=== PATIENT | female | born 1980 ===

== ENCOUNTER 2018-05-30 23:42 | Emergency (ER) | payer SELFPAY ==
[2018-05-30 23:42] VITALS: BMI 25.0
--- NOTE | 2018-05-31 00:09 | ED PDOC ---
Arrival/HPI <Chris Wheeler - Last Filed: 05/31/18 00:55> - General Historian: Patient - History of Present Illness Narrative History of Present Illness (Text): 05/31/18 00:07 37 y/o female, no significant pmh, nkda, c/o nasal congestion/coughing/fever and bodyache x 2 days with no recent traveling. Nasal congestion, admits productive coughing, tmax unknown, no night sweat, no rash, no dizziness, admits fatigue and bodyache, no night sweat, no dizziness, no change in vision, no other medical or psychological complaints. <Riley Swanson - Last Filed: 05/31/18 01:26> - General Chief Complaint: Cough, Cold, Congestion Time Seen by Provider: 05/30/18 23:58 Past Medical History - Provider Review Nursing Documentation Reviewed: Yes - Past History Past History: No Previous - Infectious Disease Hx of Infectious Diseases: None - Tetanus Immunization Tetanus Immunization: Unknown - Past Medical History Past Medical History: No Previous - Psychiatric Hx Depression: No Hx Emotional Abuse: No Hx Physical Abuse: No Hx Substance Use: No - Past Surgical History Past Surgical History: No Previous - Anesthesia Hx Anesthesia: No - Suicidal Assessment Feels Threatened In Home Enviroment: No <Riley Swanson - Last Filed: 05/31/18 01:26> Family/Social History - Physician Review Nursing Documentation Reviewed: Yes Family/Social History: Unknown Family HX Smoking Status: Never Smoked Hx Alcohol Use: No Hx Substance Use: No Hx Substance Use Treatment: No <Riley Swanson - Last Filed: 05/31/18 01:26> Allergies/Home Meds <Chris Wheeler - Last Filed: 05/31/18 00:55> <Riley Swanson - Last Filed: 05/31/18 01:26> Allergies/Adverse Reactions: Allergies No Known Allergies Allergy (Verified 03/10/16 15:57) Review of Systems - Review of Systems Constitutional: Fatigue, Fevers Eyes: absent: Vision Changes ENT: Rhinorrhea. absent: Hearing Changes Respiratory: Cough, Sputum. absent: SOB, Wheezing Cardiovascular: absent: Chest Pain Gastrointestinal: absent: Abdominal Pain, Diarrhea, Nausea, Vomiting Skin: absent: Rash, Pruritis Neurological: absent: Headache, Dizziness Psychiatric: absent: Anxiety, Depression, Suicidal Ideation <Riley Swanson - Last Filed: 05/31/18 01:26> Physical Exam - Systems Exam Head: Present: Atraumatic, Normocephalic Pupils: Present: PERRL Extroacular Muscles: Present: EOMI Conjunctiva: Present: Normal Ears: Present: NORMAL TM, Normal Canal. No: Erythema Mouth: Present: Moist Mucous Membranes, Normal Lips, Normal Tounge. No: Trismus Pharnyx: No: ERYTHEMA, EXUDATE, TONSILS ENLARGED Nose (External): Present: Atraumatic. No: Abrasion, Contusion, Laceration Nose (Internal): Present: Normal Inspection, No Active Bleeding, Rhinorrhea. No : Septal Deviation, Septal Hematoma, Epistaxis Neck: Present: Normal Range of Motion, Trachea Midline. No: Meningeal Signs, MIDLINE TENDERNESS, Paraspinal Tenderness, Lymphadenopathy Respiratory/Chest: Present: Clear to Auscultation, Good Air Exchange. No: Respiratory Distress, Accessory Muscle Use Cardiovascular: Present: Regular Rate and Rhythm, Normal S1, S2. No: Murmurs Abdomen: No: Tenderness, Distention, Peritoneal Signs, Rebound, Guarding Back: Present: Normal Inspection Upper Extremity: Present: Normal Inspection. No: Cyanosis, Edema Lower Extremity: Present: Normal Inspection. No: Edema Neurological: Present: GCS=15, CN II-XII Intact, Speech Normal, Motor Func Grossly Intact, Gait Normal, Memory Normal Skin: Present: Warm, Dry, Normal Color. No: Rashes Psychiatric: Present: Alert, Oriented x 3, Normal Insight, Normal Concentration <Riley Swanson - Last Filed: 05/31/18 01:26> Medical Decision Making - Lab Interpretations Lab Results: Lab Results 05/31/18 00:15: Influenza Typ A,B (EIA) Negative for flu a/b - Medication Orders Current Medication Orders: Discontinued Medications Acetaminophen (Tylenol 325mg Tab) 650 mg PO STAT STA Stop: 05/31/18 00:07 Azithromycin (Zithromax) 500 mg PO STAT STA; Protocol Stop: 05/31/18 00:07 <Chris Wheeler - Last Filed: 05/31/18 00:55> ED Course and Treatment: 05/31/18 00:09 -Rapid flu -zithromax and tylenol -observe and reassess 05/31/18 01:08 -PERC Criteria for PE is negative. -EKG performed by the staff: NSR @ 97 BPM, no ST elevation or depression, no T wave inversion. -Rapid flu is negative, clinical suspicious is high. -Discharge home with zithromax, tamiflu,bromfed dm, flonase, tylenol, stay hydrated, bed rest, follow up with your own pmd within 2 days, return to the ER for any new or worsening signs or symptoms. <Riley Swanson - Last Filed: 05/31/18 01:26> - PA / [employer] / Resident Statement HELEN has reviewed & agrees with the documentation as recorded. <Chris Wheeler - Last Filed: 05/31/18 00:55> - PA / [employer] WORKER / Resident Statement HELEN has reviewed & agrees with the documentation as recorded. <Riley Swanson - Last Filed: 05/31/18 01:26> Disposition/Present on Arrival <Chris Wheeler - Last Filed: 05/31/18 00:55> - Present on Arrival Any Indicators Present on Arrival: No History of DVT/PE: No History of Uncontrolled Diabetes: No Urinary Catheter: No History of Decub. Ulcer: No History Surgical Site Infection Following: None - Disposition Have Diagnosis and Disposition been Completed?: Yes Disposition Time: 01:13 Patient Plan: Discharge <Riley Swanson - Last Filed: 05/31/18 01:26> - Disposition Diagnosis: Flu-like symptoms, URI (upper respiratory infection) Disposition: HOME/ ROUTINE Condition: IMPROVED Additional Instructions: -Discharge home with zithromax, tamiflu,bromfed dm, flonase, tylenol, stay hydrated, bed rest, follow up with your own pmd within 2 days, return to the ER for any new or worsening signs or symptoms. Prescriptions: Acetaminophen [Tylenol] 2 cap PO QID PRN #30 capsule PRN Reason: Other Azithromycin [Zithromax] 250 mg PO DAILY #4 tab Brompheniramine/Pseudoephed/Dm [Bromfed Dm Cough 118 ml] 10 ml PO QID PRN #240 ml PRN Reason: Other Fluticasone Propionate [Flonase Allergy Relief] 1 spray NS DAILY #1 spray.susp Oseltamivir Phosphate [Tamiflu] 75 mg PO BID #10 capsule Referrals: [facility] at [facility] [place] [[place]] - Follow up with primary Forms: [facility] (Frisian), WORK NOTE
[2018-05-31 01:12] VITALS: RESP 16; TEMP 99.3
[2018-05-31 05:51] VITALS: BP 122/71; PULSE 89; O2SAT 98
--- NOTE | 2018-05-31 12:12 | CARD ---
APPROVED REPORT Date of service: 05/30/2018 EKG Measurement Heart [id number] <Conclusion> Normal sinus rhythm Possible Inferior infarct, age undetermined Abnormal ECG
== END 2018-05-31 01:40 | disposition home or self-care (01) ==
LOC: ED 23:42
DX: J11.1 Influenza due to unidentified influenza virus with other respiratory manifestations (principal); J06.9 Acute upper respiratory infection, unspecified